=== PATIENT | female | born 1950 | race Caucasian/White ===

== ENCOUNTER 2019-01-14 18:37 | Emergency (ER) | payer BC, MEDICARE ==
[~2019-01-14] VITALS: Ht 167.6 cm; Wt 101.4 kg
[2019-01-14 18:52] VITALS: BP 120/70
[2019-01-14] MEDS ORDERED: DIPH,PERTUSS(ACELL),TET VAC/PF 0.5 ML IM-VACC ONE ×2 (19:27→19:30)
[2019-01-14] MEDS ORDERED: HYDROcodone/APAP 5/325 TABLET ONE (19:27)
[2019-01-14] MEDS ORDERED: HYDROcodone/APAP 5/325 TABLET PO ONE (19:30)
[2019-01-14] MEDS ORDERED: CITALOPRAM PO (19:48)
[2019-01-14] MEDS ORDERED: ASPI-496 PO (19:48)
[2019-01-14] MEDS ORDERED: GABA600T PO (19:48)
[2019-01-14] MEDS ORDERED: DOXEPIN PO (19:48)
[2019-01-14] MEDS ORDERED: LISI-170 PO (19:48)
[2019-01-14] MEDS ORDERED: BACITRACIN ZINC OINT 500U/GM, 0.9 GM ONE (19:52)
== END 2019-01-14 20:26 | disposition home or self-care (01) ==
LOC: ED 20:20
DX: S20.211A Contusion of right front wall of thorax, initial encounter (principal); S00.83XA Contusion of other part of head, initial encounter; S20.311A Abrasion of right front wall of thorax, initial encounter; S00.81XA Abrasion of other part of head, initial encounter; E11.9 Type 2 diabetes mellitus without complications; W01.0XXA Fall on same level from slipping, tripping and stumbling without subsequent striking against object, initial encounter; Y93.89 Activity, other specified; Y92.410 Unspecified street and highway as the place of occurrence of the external cause; Y99.8 Other external cause status
CPT/HCPCS: 70450; 70486; 90471; 90715; 99284